=== PATIENT | female | born 1990 | race Caucasian/White ===

== ENCOUNTER 2017-04-24 07:52 | Emergency (ER) | payer BC ==
[~2017-04-24] VITALS: Ht 162.6 cm; Wt 64.7 kg
[~2017-04-24 07:52] MED LIST: IBUP-1050 PO; PHEN-876 PO
[2017-04-24 07:55] VITALS: TEMP 36.8; Ht 162.6 cm; Wt 64.7 kg
[2017-04-24] MEDS ORDERED: SODIUM CHLORIDE 0.9% 1000ML 1,000 ML IV STA (08:15)
[2017-04-24] MEDS ORDERED: ONDANSETRON INJ 2 MG/ML 2 ML VIAL IV STA (08:15)
[2017-04-24 08:38] LABS: URINE APPEARANCE CLEAR (CLEAR); URINE BILIRUBIN NEG (NEG); URINE COLOR YELLOW; URINE NITRITE NEG (NEG); URINE PH 5.5 (4.5-7.5); URINE SPECIFIC GRAVITY 1.015 (1.000-1.030); UROBILINOGEN NEG (NEG)
[2017-04-24 08:40] LABS: PREG INTERNAL NEGATIVE QC NEG CLEAR BACKGROUND; PREG INTERNAL POSITIVE QC POS CONTROL LINE
[2017-04-24 08:47] LABS: MANUAL MICROSCOPIC REQUIRED? NO; REVIEW REQ? NO
[2017-04-24 08:59] LABS: BUN/CREATININE RATIO 11.8 (10-20); CREATININE 0.81 mg/dl (0.60-1.20); POTASSIUM 3.5 mmol/L (3.5-5.1)
[2017-04-24 09:26] LABS: BASO % 0.7 %; BASO ABS # 0.04 K/uL (0-0.2); COMPLETE YES; EOS % 2.7 %; HEMATOCRIT 44.2 % (37-47); IG% 0.2 %; LYMPH % 33.5 %; LYMPH ABS # 1.96 K/uL (1.2-3.4); MEAN CELL VOLUME 89.8 fL (80-100); MEAN CORPUSCULAR HEMOGLOBIN 31.7 pg (25-34); MEAN CORPUSCULAR HGB CONC 35.3 g/dl (32-36); MEAN PLATELET VOLUME 12.2 fL (7.4-10.4); MONO % 8.9 %; PLATELET COUNT 209 K/uL (130-400); RED BLOOD COUNT 4.92 M/uL (4.2-5.4); WHITE BLOOD COUNT 5.85 K/uL (4.8-10.8)
--- NOTE | 2017-04-24 09:56 | DIAGNOSTIC IMAGING REPORT ---
PELVIC COMPLETE NON OB HISTORY: 27 years-old Female RLQ ABDOMINAL PAIN - POSSIBLE OVARIAN CYST acute right lower quadrant abdominal pain with ovarian cysts COMPARISON: None available TECHNIQUE: Multiple real-time sonographic images of the deep pelvic structures were obtained transabdominally assessing grayscale appearance, color and spectral flow. Patient refused the transvaginal component of the study. FINDINGS: Uterus measures 10.2 x 4.0 x 5.1 cm. Endometrium measures 0.5 cm. No myometrial mass lesions identified. Right ovary measures 4.8 x 2.4 x 2.4 cm. Complex centrally cystic lesion, 3.0 x 1.4 x 1.6 cm suggesting hemorrhagic cyst is noted within the right ovary. Right ovarian arterial inflow documented. The left ovary measures 4.7 x 2.5 x 2.6 cm and is unremarkable with arterial inflow. Mild free pelvic fluid. IMPRESSION: 1. Hemorrhagic cyst of the right ovary, 3.0 cm. No evidence of ovarian torsion. 2. Unremarkable sonographic appearance of the uterus, endometrium and left ovary. 3. Mild free pelvic fluid. The above report was generated using voice recognition software. It may contain grammatical, syntax or spelling errors. Electronically signed by: Jitendra Morrison M.D. 04/24/2017 9:55 AM Dictated Date/Time: 04/24/2017 9:50 AM
--- NOTE | 2017-04-24 10:41 | DIAGNOSTIC IMAGING REPORT ---
CT SCAN OF THE ABDOMEN AND PELVIS WITH IV CONTRAST CLINICAL HISTORY: Right lower quadrant abdominal pain. Nausea. COMPARISON STUDY: Pelvic ultrasound dated 04/24/2017. TECHNIQUE: Following the IV administration of 100 cc of Optiray 320, CT scan of the abdomen and pelvis is performed from the lung bases to the proximal femora. Images are reviewed in the axial, sagittal, and coronal planes. IV contrast was administered without complication. A dose lowering technique was utilized adhering to the principles of ALARA. CT DOSE: 317.48 mGy.cm FINDINGS: Lung bases: The heart is normal in size and without pericardial effusion. The lung bases are clear noting dependent atelectasis. Liver: The contrast-enhanced liver is normal in size, contour, and attenuation. There is no intrahepatic biliary ductal dilatation. The hepatic veins and portal veins are patent. Gallbladder: Unremarkable. Spleen: Normal in size and attenuation. Pancreas: Unremarkable. Adrenal glands: Unremarkable. Kidneys: The contrast enhanced kidneys are normal in size and without hydronephrosis. The kidneys enhance symmetrically. Abdominal vasculature: The abdominal aorta is normal in course and caliber. Bowel: The small bowel and colon are normal in course and caliber. The appendix is well-visualized and normal. Peritoneum: There is no intraperitoneal free air or abdominal ascites. There is a fat-containing umbilical hernia. Lymphadenopathy: None. Pelvic viscera: The bladder, uterus, and adnexa are normal as visualized. There are bilateral ovarian follicles. A small volume of free fluid is seen in the cul-de-sac. Skeletal structures: No lytic or blastic lesions are seen. IMPRESSION: 1. There are no acute infectious or inflammatory findings in the abdomen or pelvis. 2. There is a small volume of free fluid in cul-de-sac, likely within physiologic limits. Electronically signed by: Toby Hui M.D. 04/24/2017 10:40 AM Dictated Date/Time: 04/24/2017 10:37 AM
[2017-04-24] MEDS ORDERED: OPTIRAY 320 IV PRN (10:45)
[2017-04-24 11:15] VITALS: BP 132/82; PULSE 81; O2SAT 98
--- NOTE | 2017-04-24 17:00 | EMERGENCY ROOM VISIT NOTE ---
History First contact with patient: 07:59 Chief Complaint: ABDOMINAL PAIN Stated Complaint: ABD. PAIN/LOWER RIGHT History of Present Illness The patient is a 27 year old female who presents to the Emergency Room with complaints of lower abdominal pain that started yesterday morning. The patient now reports that any movement worsens her discomfort. She denies any nausea, vomiting, diarrhea, urinary symptoms or constipation. The patient denies any bowel history, ovarian cysts or constipation. The patient denies any vaginal drainage, and reports that she is due for menstruation in one week. The patient is not concerned for STI's. She rates her discomfort a 3 out of 10. The pain does not radiate into her back or chest. Review of Systems HEENT: Denies dizziness, visual problems, hearing loss, tinnitus. Denies difficulty swallowing or oral lesions. PULMONARY: Denies cough, shortness of breath, sputum production or hemoptysis. CARDIOVASCULAR: Denies chest pain, palpitations, dyspnea on exertion, orthopnea or peripheral edema. GASTROINTESTINAL: See history of present illness. GENITOURINARY: Denies dysuria, frequency, urgency or nocturia. NEUROLOGIC: Denies history of epilepsy, CVA, TIA or chronic headaches. MUSCULOSKELETAL: Denies history of joint tenderness/swelling. SKIN: Denies rashes or lesions. PSYCHIATRIC: Denies history of depression or mental illness. ENDOCRINE: Denies history of diabetes or thyroid disorders. Past Medical/Surgical History Medical Problems: (1) Factor V deficiency Family History FH: HTN (hypertension) FH: cancer FH: diabetes mellitus Heart disease Social History Smoking Status: Former Smoker Alcohol Use: occasionally Marital Status: single Occupation Status: employed Current/Historical Medications No Active Prescriptions or Reported Meds Physical Exam Vital Signs Date Time Temp Pulse Resp B/P (MAP) Pulse Ox O2 Delivery O2 Flow Rate FiO2 04/24/17 11:15 81 16 132/82 98 04/24/17 10:30 81 16 132/82 98 Room Air 04/24/17 07:55 36.8 83 16 114/77 98 Room Air Physical Exam CONSTITUTIONAL: Healthy and well nourished. Alert and oriented X 3 with positive affect. Patient does not appear in any acute distress. HEENT: Normocephalic, atraumatic. Pupils equal, round and reactive. NECK: Full active range of motion without discomfort. RESPIRATORY: Clear to auscultation bilaterally with no wheezing, crackles, rhonchi or stridor. CARDIOVASCULAR: Regular rate and rhythm with no murmurs, rubs or gallops. GASTROINTESTINAL: Bowel sounds present in all quadrants. Patient has mild lower abdominal tenderness to palpation with positive McBurney's point tenderness. Positive Rovsing sign and positive psoas/obturator sign. Negative heel tap. Negative CVA tenderness. No abdominal rigidity, guarding or rebound. MUSCULOSKELETAL: Full range of motion of all joints without discomfort. INTEGUMENTARY: No rash or other significant dermatologic conditions noted. HEMATOLOGIC: No ecchymosis or petechiae. NEUROLOGIC: No focal neurologic deficits noted. Medical Decision & Procedures ER Provider Diagnostic Interpretation: Pelvic and transvaginal ultrasound shows a 3 cm right hemorrhagic ovarian cyst with free fluid in the pelvis. No other acute findings are noted. Radiologist report is as follows: PELVIC COMPLETE NON OB HISTORY: 27 years-old Female RLQ ABDOMINAL PAIN - POSSIBLE OVARIAN CYST acute right lower quadrant abdominal pain with ovarian cysts COMPARISON: None available TECHNIQUE: Multiple real-time sonographic images of the deep pelvic structures were obtained transabdominally assessing grayscale appearance, color and spectral flow. Patient refused the transvaginal component of the study. FINDINGS: Uterus measures 10.2 x 4.0 x 5.1 cm. Endometrium measures 0.5 cm. No myometrial mass lesions identified. Right ovary measures 4.8 x 2.4 x 2.4 cm. Complex centrally cystic lesion, 3.0 x 1.4 x 1.6 cm suggesting hemorrhagic cyst is noted within the right ovary. Right ovarian arterial inflow documented. The left ovary measures 4.7 x 2.5 x 2.6 cm and is unremarkable with arterial inflow. Mild free pelvic fluid. IMPRESSION: 1. Hemorrhagic cyst of the right ovary, 3.0 cm. No evidence of ovarian torsion. 2. Unremarkable sonographic appearance of the uterus, endometrium and left ovary. 3. Mild free pelvic fluid. Enhanced CT of the abdomen and pelvis does not show any evidence for acute appendicitis or other acute intra-abdominal findings. Radiologist report is as follows: CT SCAN OF THE ABDOMEN AND PELVIS WITH IV CONTRAST CLINICAL HISTORY: Right lower quadrant abdominal pain. Nausea. COMPARISON STUDY: Pelvic ultrasound dated 04/24/2017. TECHNIQUE: Following the IV administration of 100 cc of Optiray 320, CT scan of the abdomen and pelvis is performed from the lung bases to the proximal femora. Images are reviewed in the axial, sagittal, and coronal planes. IV contrast was administered without complication. A dose lowering technique was utilized adhering to the principles of ALARA. CT DOSE: 317.48 mGy.cm FINDINGS: Lung bases: The heart is normal in size and without pericardial effusion. The lung bases are clear noting dependent atelectasis. Liver: The contrast-enhanced liver is normal in size, contour, and attenuation. There is no intrahepatic biliary ductal dilatation. The hepatic veins and portal veins are patent. Gallbladder: Unremarkable. Spleen: Normal in size and attenuation. Pancreas: Unremarkable. Adrenal glands: Unremarkable. Kidneys: The contrast enhanced kidneys are normal in size and without hydronephrosis. The kidneys enhance symmetrically. Abdominal vasculature: The abdominal aorta is normal in course and caliber. Bowel: The small bowel and colon are normal in course and caliber. The appendix is well-visualized and normal. Peritoneum: There is no intraperitoneal free air or abdominal ascites. There is a fat-containing umbilical hernia. Lymphadenopathy: None. Pelvic viscera: The bladder, uterus, and adnexa are normal as visualized. There are bilateral ovarian follicles. A small volume of free fluid is seen in the cul-de-sac. Skeletal structures: No lytic or blastic lesions are seen. IMPRESSION: 1. There are no acute infectious or inflammatory findings in the abdomen or pelvis. 2. There is a small volume of free fluid in cul-de-sac, likely within physiologic limits. Laboratory Results 04/24/17 08:22 Red Blood Count 4.92, Mean Corpuscular Volume 89.8, Mean Corpuscular Hemoglobin 31.7, Mean Corpuscular Hemoglobin Concent 35.3, Mean Platelet Volume 12.2, Neutrophils (%) (Auto) 54.0, Lymphocytes (%) (Auto) 33.5, Monocytes (%) (Auto) 8.9, Eosinophils (%) (Auto) 2.7, Basophils (%) (Auto) 0.7, Neutrophils # (Auto) 3.16, Lymphocytes # (Auto) 1.96, Monocytes # (Auto) 0.52, Eosinophils # (Auto) 0.16, Basophils # (Auto) 0.04 04/24/17 08:22 Test 04/24/17 08:22 White Blood Count 5.85 K/uL (4.8-10.8) Red Blood Count 4.92 M/uL (4.2-5.4) Hemoglobin 15.6 g/dL (12.0-16.0) Hematocrit 44.2 % (37-47) Mean Corpuscular Volume 89.8 fL (80-100) Mean Corpuscular Hemoglobin 31.7 pg (25-34) Mean Corpuscular Hemoglobin Concent 35.3 g/dl (32-36) Platelet Count 209 K/uL (130-400) Mean Platelet Volume 12.2 fL (7.4-10.4) Neutrophils (%) (Auto) 54.0 % Lymphocytes (%) (Auto) 33.5 % Monocytes (%) (Auto) 8.9 % Eosinophils (%) (Auto) 2.7 % Basophils (%) (Auto) 0.7 % Neutrophils # (Auto) 3.16 K/uL (1.4-6.5) Lymphocytes # (Auto) 1.96 K/uL (1.2-3.4) Monocytes # (Auto) 0.52 K/uL (0.11-0.59) Eosinophils # (Auto) 0.16 K/uL (0-0.5) Basophils # (Auto) 0.04 K/uL (0-0.2) RDW Standard Deviation 39.7 fL (36.4-46.3) RDW Coefficient of Variation 12.1 % (11.5-14.5) Immature Granulocyte % (Auto) 0.2 % Immature Granulocyte # (Auto) 0.01 K/uL (0.00-0.02) Urine Color YELLOW Urine Appearance CLEAR (CLEAR) Urine pH 5.5 (4.5-7.5) Urine Specific [place] 1.015 (1.000-1.030) Urine Protein NEG (NEG) Urine Glucose (UA) NEG (NEG) Urine Ketones 1+ (NEG) Urine Occult Blood NEG (NEG) Urine Nitrite NEG (NEG) Urine Bilirubin NEG (NEG) Urine Urobilinogen NEG (NEG) Urine Leukocyte Esterase NEG (NEG) Urine Test NEG (NEG) Anion Gap 8.0 mmol/L (3-11) Est Creatinine Clear Calc Drug Dose 90.1 ml/min Estimated GFR () 115.4 Estimated GFR (Non- 99.5 BUN/Creatinine Ratio 11.8 (10-20) Calcium Level 9.0 mg/dl (8.5-10.1) Total Bilirubin 0.6 mg/dl (0.2-1) Direct Bilirubin 0.1 mg/dl (0-0.2) Aspartate Amino Transf (AST/SGOT) 11 U/L (15-37) Alanine Aminotransferase (ALT/SGPT) 17 U/L (12-78) Alkaline Phosphatase 48 U/L (45-117) Total Protein 7.8 gm/dl (6.4-8.2) Albumin 4.4 gm/dl (3.4-5.0) Lipase 220 U/L (73-393) The above labs were reviewed and were grossly normal with a normal urinalysis. Urine is negative. Medications Administered Medications (Trade) Dose Ordered Sig/Eleni Route Start Time Stop Time Status Last Admin Dose Admin Sodium Chloride 1,000 ml @ 999 mls/hr Q1H1M STAT IV 04/24/17 08:15 04/24/17 09:15 DC 04/24/17 08:30 999 MLS/HR Ondansetron HCl (Zofran Inj) 4 mg NOW STAT IV 04/24/17 08:15 04/24/17 08:18 DC 04/24/17 08:30 4 MG Procedure 1. IV hydration: Normal saline 1 L bolus 2. IV medications: Zofran 4 mg IVP ED Course Patient history and physical exam were performed. Nurse's notes were reviewed. Vital signs were reviewed and were normal. Ankle exam was concerning for possible acute appendicitis; I did discuss other possibilities, including ovarian cyst, PID, UTI and ectopic . IV access was established, and labs were drawn. Urinalysis was normal with a negative urine . CBC and partial renal profile, along with LFTs and lipase were normal. While undergoing oral prep for an enhanced CT of the abdomen and pelvis, I did recommend performing a pelvic ultrasound to rule out other reproductive etiologies. Pelvic ultrasound did show evidence for a 3 cm right ovarian hemorrhagic cyst. CT of the abdomen and pelvis was otherwise normal. The case was further discussed with Dr. Valera, ED attending physician, who agrees with workup and outpatient panic care. The patient was encouraged to alternate ibuprofen and Tylenol as needed for pain. I did suggest that she follow-up with her [employer] if symptoms are not significantly improving within the next 3-5 days. She was also instructed to return to the emergency department for any progressively worsening pain, vomiting or developing fever. The patient was happy with plan of care, voiced understanding of all discharge instructions, and rated her pain a 2 out of 10 at the conclusion of my exam. Medical Decision Patient presents to the emergency department with complaint of lower abdominal pain. Her clinical exam was initially concerning for acute appendicitis. CT scan is not suggestive of appendicitis. A hemorrhagic right ovarian cyst is noted on ultrasound, and I suspect that this is what is causing the patient's discomfort. Certainly early appendicitis is possible. She has no evidence for UTI or hematuria that would be suggestive of renal colic. I do not suspect musculoskeletal etiology. Medication Reconcilliation Current Medication List: was personally reviewed by me Blood Pressure Screening Patient's blood pressure: Normal blood pressure Impression Primary Impression: Hemorrhagic cyst of right ovary Departure Information Prescriptions No Active Prescriptions or Reported Meds Referrals Maggie Grace,P.A. (PCP) Patient Instructions My [facility]
== END 2017-04-24 11:15 | disposition home or self-care (01) ==
LOC: C.EDB 07:53
DX: R10.31 Right lower quadrant pain (principal); N83.201 Unspecified ovarian cyst, right side; Z87.891 Personal history of nicotine dependence

== ENCOUNTER 2017-08-22 04:43 | Emergency (ER) | payer BC ==
[~2017-08-22] VITALS: Ht 160 cm; Wt 62.8 kg
[2017-08-22 04:47] VITALS: TEMP 36.9; Ht 160 cm; Wt 62.8 kg
[2017-08-22] MEDS ORDERED: IBUPROFEN 600 MG TAB PO STA (05:02)
[2017-08-22 06:28] VITALS: BP 115/76; PULSE 97; O2SAT 98
[2017-08-22] MEDS ORDERED: NORCO 5/325MG HOME PACK PO ONE (06:30)
--- NOTE | 2017-08-22 06:37 | DIAGNOSTIC IMAGING REPORT ---
HEAD CT NONCONTRAST CT DOSE: 537.48 mGy.cm HISTORY: Right side head injury s/p fall TECHNIQUE: Multiaxial CT images of the head were performed without the use of intravenous contrast. Automated exposure control was utilized for this study. A dose lowering technique was utilized adhering to the principles of ALARA. Comparison: Brain MRI 03/29/2015. Findings: The paranasal sinuses and mastoid air cells are clear. The calvarium and skull base are intact. The ventricles and sulci are within normal limits. There is no mass, hematoma, midline shift, or acute infarct. Mild right parietal scalp swelling. Impression: No acute intracranial abnormality. Electronically signed by: Alvin Cazares M.D. 08/22/2017 6:35 AM Dictated Date/Time: 08/22/2017 6:34 AM
--- NOTE | 2017-08-23 06:32 | EMERGENCY ROOM VISIT NOTE ---
ED Visit Note First contact with patient: 04:53 CHIEF COMPLAINT: Head injury HISTORY OF PRESENT ILLNESS: This 27-year-old female patient presented to the emergency department after receiving a head injury about one hour ago. The patient states that she went with friends tonight to have drinks. She did did not drink very much tonight, but was wearing high heels, slipped, and fell backwards striking her head. There was no brief loss of consciousness. There has been no vomiting. The headache has been mild. The patient complains of no neck pain. The patient has taken nothing a for the pain. The patient rates the pain as 5/10 and dull. The patient denies bowel or bladder dysfunction. The patient denies any other injuries. REVIEW OF SYSTEMS: A review of systems was performed with positives and pertinent negatives listed in the history of present illness. All other systems were reviewed and are negative. 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 GENERAL : White female, in no acute distress, well-developed, well-nourished. NEURO: The patient is alert, oriented to person place and time, and coherent. Normal mini mental status exam. Negative Romberg and pronator drift. Cerebellar function intact. HEAD: Moderate sized right parietal hematoma noted without laceration. No styles sign or raccoon eyes. EYES: Pupils are equal round and reactive to light and accommodation. EOMs are full and optic discs and fundi are normal. There is no swelling or discoloration of the tissue surrounding the eyes. EARS: External auditory canals clear without blood. NOSE: Patent without tenderness. No septal hematoma. FACE: No facial bone tenderness. NECK: Supple. There is no cervical spine tenderness. The patient does not have tenderness with movement of the neck. HEAD CT NONCONTRAST CT DOSE: 537.48 mGy.cm HISTORY: Right side head injury s/p fall TECHNIQUE: Multiaxial CT images of the head were performed without the use of intravenous contrast. Automated exposure control was utilized for this study. A dose lowering technique was utilized adhering to the principles of ALARA. Comparison: Brain MRI 03/29/2015. Findings: The paranasal sinuses and mastoid air cells are clear. The calvarium and skull base are intact. The ventricles and sulci are within normal limits. There is no mass, hematoma, midline shift, or acute infarct. Mild right parietal scalp swelling. Impression: No acute intracranial abnormality. ED COURSE: Physical exam and history were performed. Nursing notes and EMR were reviewed. The patient appears to have a mechanical fall and struck the back of her head. CT scan was performed and we will myself and radiology. CT scan does not show acute intracranial abnormality. The patient will be treated conservatively with [id number] analgesics. She was given discharge instructions as below and otherwise invited back to the ER with any new, worsening, or concerning symptoms. Problem List Medical Problems: (1) Factor V deficiency Status: Chronic Current/Historical Medications No Active Prescriptions or Reported Meds Allergies Coded Allergies: Amoxicillin (Unverified Allergy, Unknown, RASH, 04/24/17) Vital Signs Date Time Temp Pulse Resp B/P (MAP) Pulse Ox O2 Delivery O2 Flow Rate FiO2 08/22/17 06:28 97 18 115/76 98 Room Air 08/22/17 04:57 18 08/22/17 04:47 36.9 111 18 125/86 95 Room Air Medications Administered Medications (Trade) Dose Ordered Sig/Eleni Route Start Time Stop Time Status Last Admin Dose Admin Ibuprofen (Motrin Tab) 600 mg NOW STAT PO 08/22/17 05:02 08/22/17 05:03 DC 08/22/17 05:18 600 MG Acetaminophen/ Hydrocodone Bitart ([place] 5/325mg Home Pack) 1 homepack UD ONCE PO 08/22/17 06:30 08/22/17 06:31 DC 08/22/17 06:26 1 HOMEPACK Departure Information Impression Primary Impression: Closed head injury Dispostion Home / Self-Care Condition GOOD Prescriptions No Active Prescriptions or Reported Meds Referrals Maggie GracePNegraA. (PCP) Forms HOME CARE DOCUMENTATION FORM, IMPORTANT VISIT INFORMATION Patient Instructions My [facility], ED Concussion Additional Instructions You were seen and evaluated today on an emergency basis only. This is not a substitute for, or an effort to provide, complete comprehensive medical care. It is not possible to recognize and treat all injuries or illnesses in a single emergency department visit. For this reason it is recommended that you followup with your primary care physician with any ongoing or persistent symptoms. For baseline pain relief you may alternate ibuprofen and acetaminophen every 4 hours for pain control. Take 600 mg ibuprofen (Advil) and then 4 hours later take 1000 mg acetaminophen (Tylenol). Do not take more than 3000 mg acetaminophen in a single day. [place] (hydrocodone/acetaminophen) 5/325 mg (homepack) every 6 hours as needed for worsening breakthrough pain. Do not drink or drive on [place]. This medication will likely make you tired. Do not take [place] and Tylenol at the same time as both contain acetaminophen. [place] may cause constipation. You may wish to take an [id number] stool softener like Colace if this occurs. You are welcome to return to the emergency department anytime with new, worsening, or concerning symptoms.
== END 2017-08-22 06:29 | disposition home or self-care (01) ==
LOC: C.EDB 04:44 → C.EDA 06:29
DX: S00.83XA Contusion of other part of head, initial encounter (principal); W01.198A Fall on same level from slipping, tripping and stumbling with subsequent striking against other object, initial encounter; D68.51 Activated protein C resistance; Z88.1 Allergy status to other antibiotic agents